=== PATIENT | male | born 1975 | race Caucasian/White ===

== ENCOUNTER 2024-02-18 15:44 | Emergency (ER) | payer BC, SELFPAY ==
[2024-02-18 15:44] VITALS: BMI 25.6
[2024-02-18 15:59] VITALS: BP 130/89
--- NOTE | 2024-02-18 23:04 | ED.GENMED ---
History of Present Illness
General
Chief Complaint: Musculo-Skeletal Complaint
Source: patient
Time Seen by Provider: 02/18/24 22:38
Travel History
Have you had any contact with someone who has COVID-19?: No
Do you have any symptoms of coronavirus? Fever > 100 degrees, chills, cough, shortness of breath, sore throat, loss of taste or smell, muscle aches, or headache?: No
History of Present Illness
History of Present Illness:
48-year-old male presents to the emergency room complaining of right knee pain. Patient states he had a fall while in [place] yesterday. He was taken to [facility] where he was diagnosed with a distal femur fracture. Patient is visiting the
area from [place]. The plan was to immobilize him until he can follow-up with his orthopedic doctors in [place]. The patient has had multiple orthopedic procedures to this leg. Patient was not discharged with any pain medicine. He presents
because of uncontrolled pain.
Phy Exam
Physical Exam
Physical Exam:
General: Awake, Alert, Oriented X3. No acute distress.
Vitals: unremarkable
Head: Atraumatic
Eyes: Pupils equal, EOMI
Throat: Airway intact, no exudates
Neuro: Nonfocal
Skin: Warm, dry, no rash
Extremities: pulses equal b/l, swelling noted right distal thigh, the. Tender to palpation. Compartments soft.
Course
Orders/Labs/Results
Orders:
Orders
02/18/24 23:04
Oxycodone [Roxicodone] 5 mg PO NOW STA
CR Knee - Right 1 Or 2 Views Urgent
Comment:
Reason For Exam: knee trauma
Vital Signs
Initial and Last Documented VS:
Initial Vital Signs
Temp Pulse Resp BP Pulse Ox
98.2 F 129 16 130/89 97
02/18/24 15:59 02/18/24 15:59 02/18/24 15:59 02/18/24 15:59 02/18/24 15:59
Last Documented Vital Signs
Temp Pulse Resp BP Pulse Ox
98.2 F 95 20 124/82 96
02/18/24 15:59 02/19/24 00:19 02/19/24 00:19 02/19/24 00:19 02/19/24 00:19
MDM/Problems Addressed
Differential Diagnosis Includes:
Pain from fracture, effusion,
MDM/Problems Addressed:
Patient presents with right knee/leg pain. He did have a workup at [facility] and was told he had a 'femur fracture'. Patient states the pain has worsened which may not be unexpected from an acute fracture however images obtained so we could better
understand exactly what is going on. X-ray shows fracture of the lateral femoral condyle. Clearly not a surgical emergency. Will give a dose of oxycodone here. A short course of oxycodone is not unreasonable. Patient will receive definitive
care when he travels back to [place] in 1 to 2 days.
*Radiology
Radiology exam reviewed: preliminary read by ED provider (Personally reviewed the patient's knee x-ray, fracture involving the lateral femoral condyle)
*Pulse Oximetry
Patient hypoxic: no
*Critical Care Note
Total Time (30-74mins, 75-104mins- exclusive of procedures): Not Applicable
ED Attending Note
-
Portions of this chart may have been created with voice recognition software.� Occasional wrong word or��sound alike� substitutions may have occurred due to the inherent limitations of voice recognition software.
Discharge Plan
Departure
Patient Disposition: Home (Routine Discharge)
Date of Disposition: 02/18/24
Time of Disposition: 23:25
Patient with high blood pressure during this ER visit?: No
Condition: Good
Discharge Problem:
Fracture of condyle of right femur
Instructions: Femur Fracture ED
Prescriptions:
New
oxycodone 5 mg tablet
5 mg PO Q6H PRN (Reason: Pain) Qty: 12 0RF
Referrals:
UNKNOWN - PT DOES,NOT KNOW [Family Provider] -
Activity Restrictions/Additional Instructions:
Your x-ray shows a fracture of the femoral condyle. This can be followed up with your ortho doctor when you get home. I have sent a prescription for pain medication to get you through your trip home.
Interventions
Interventions:
*Risk Screen - Suicide Last Done: 02/19/24 00:19
*General Assessment Last Done: 02/19/24 00:19
*Neglect/Abuse Screening Last Done: 02/19/24 00:19
ED- Fall Risk Assessment Last Done: 02/19/24 00:19
*ED COVID-19 Vaccine History Last Done: 02/19/24 00:19
*Nursing Disposition Last Done: 02/19/24 00:19
ED-Musculoskeletal Assessment Last Done: 02/19/24 00:16
Discharge Date and Time
Discharge Date/Time: 02/19/24 00:53
Print Language: SENEGALESE
[2024-02-18] MEDS: ROXICODONE 5 MG PO (23:46)
[2024-02-19 00:19] VITALS: BP 124/82
== END 2024-02-19 00:53 | disposition home or self-care (01) ==
LOC: EMR 15:44
PROVIDERS: EMERGENCY PHYSICIAN Emergency Medicine
DX: S72.421A Displaced fracture of lateral condyle of right femur, initial encounter for closed fracture (principal); W19.XXXA Unspecified fall, initial encounter
CPT/HCPCS: 99283; 73560